=== PATIENT | female | born 1965 | race Caucasian/White ===

== ENCOUNTER 2016-07-19 20:02 | Emergency (ER) | payer OTHER ==
[~2016-07-19] VITALS: Ht 160 cm; Wt 93.0 kg
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
[2016-07-19] MEDS ORDERED: SERTRALINE HCL50 MG PO (21:30)
[2016-07-19] MEDS ORDERED: ALPRAZOLAM0.5 M4 PO (21:30)
[2016-07-19 21:36] LABS: ABSOLUTE BASOPHIL COUNT 0 /CUMM (0.0-0.2); ABSOLUTE EOSINOPHIL COUNT 0.5 /CUMM (0.0-0.7); ABSOLUTE GRANULOCYTE CT 6.2 /CUMM (1.4-6.5); ABSOLUTE LYMPH COUNT 2.4 /CUMM (1.2-3.4); ABSOLUTE MONOCYTE COUNT 1.2 /CUMM (0.10-0.60); BASOPHIL % 0.3 % (0.0-2.0); EOSINOPHIL % 4.5 % (0-5); GRANULOCYTE % 60.1 % (42.2-75.2); HEMATOCRIT 41.4 % (37-47); MEAN CORPUSCULAR HGB 30.5 PG (27.0-31.0); MEAN CORPUSCULAR HGB CONC 33.2 G/DL (33.0-37.0); MEAN CORPUSCULAR VOLUME 91.9 FL (81.0-99.0); MEAN PLATELET VOLUME 9.4 FL (7.4-10.4); PLATELET COUNT 265 /CUMM (130-400); RBC DISTRIBUTION WIDTH 14.1 % (11.5-14.5); RED BLOOD CELL CT 4.51 /CUMM (4.20-5.40); WHITE BLOOD CELL COUNT 10.4 /CUMM (4.8-10.8)
[2016-07-19] MEDS ORDERED: KEFLEX500 M1 PO (22:07)
[2016-07-19 22:17] VITALS: BP 126/75
== END 2016-07-19 22:17 ==
LOC: ERH 20:02
PROVIDERS: Physician Assistant Medical
DX: L03.116 Cellulitis of left lower limb (principal)
CPT/HCPCS: 96374; 96375; J1885